=== PATIENT | male | born 1940 | race Caucasian/White ===

== ENCOUNTER → 2018-06-15 | Outpatient (CLI) | payer OTHER, MEDICARE ==
[~2018-06-15] MED LIST: ADULT LOW DOSE81 MG PO; ADVAIR HFA 45-218 GM; ASPIRIN EC81 M1 PO; ATORVASTATIN CA10 MG PO; B12INJ PO; CALCIUM 500 +1 EAC5 PO; CARDURA4 MG PO; FLONASE 0.05%50 MCG NASAL; LEVAQUIN 500 M500 M2 PO; LIPITOR10 MG PO; MUCINEX600 MG PO; PREDNISONE 20 M20 M1 PO; VITAMIN E400 UNIT PO; ZESTRIL20 MG PO
== END ==
LOC: RAD 11:56
DX: R06.00 Dyspnea, unspecified (principal); M25.78 Osteophyte, vertebrae; Z88.0 Allergy status to penicillin; Z88.8 Allergy status to other drugs, medicaments and biological substances

== ENCOUNTER 2020-03-23 14:19 | Emergency (ER) | payer OTHER, MEDICARE ==
[~2020-03-23] VITALS: Ht 180.3 cm; Wt 99.8 kg
[2020-03-23] MEDS ORDERED: CIPRO250 M2 PO (15:35)
[2020-03-23 15:37] VITALS: BP 108/41
[2020-03-23 15:51] LABS: URINE BILIRUBIN NEGATIVE (Negative); URINE BLOOD NEGATIVE (Negative); URINE CLARITY CLEAR; URINE COLOR YELLOW; URINE GLUCOSE-RANDOM* NEGATIVE (Negative); URINE KETONES NEGATIVE (Negative); URINE LEUKOCYTES-REFLEX NEGATIVE (Negative); URINE NITRITE-REFLEX NEGATIVE (Negative); URINE PROTEIN (DIPSTICK) NEGATIVE (Negative); URINE SPECIFIC GRAVITY >= 1.030 (1.005-1.035); URINE UROBILINOGEN 0.2 E.U./dl (0.2-1.0)
== END 2020-03-23 16:50 | disposition home or self-care (01) ==
LOC: ER 14:19
PROVIDERS: Emergency Medicine
DX: R33.9 Retention of urine, unspecified (principal); R30.0 Dysuria; I10 Essential (primary) hypertension; Z98.890 Other specified postprocedural states; Z79.899 Other long term (current) drug therapy; Z79.82 Long term (current) use of aspirin; Z88.8 Allergy status to other drugs, medicaments and biological substances; Z88.0 Allergy status to penicillin; Z87.891 Personal history of nicotine dependence

== ENCOUNTER 2020-03-27 09:36 | Emergency (ER) | payer OTHER, MEDICARE ==
[~2020-03-27] VITALS: Ht 180.3 cm; Wt 102.5 kg
[~2020-03-27 09:36] MED LIST changes: +CIPRO250 M2 PO
[2020-03-27 10:24] LABS: URINE BLOOD 3+ (Negative); URINE CLARITY SL CLOUDY; URINE COLOR BROWN; URINE GLUCOSE-RANDOM* NEGATIVE (Negative); URINE KETONES TRACE (Negative); URINE LEUKOCYTES-REFLEX TRACE (Negative); URINE NITRITE-REFLEX NEGATIVE (Negative); URINE PROTEIN (DIPSTICK) 2+ (Negative); URINE SPECIFIC GRAVITY >= 1.030 (1.005-1.035); URINE UROBILINOGEN 0.2 E.U./dl (0.2-1.0)
[2020-03-27 10:31] LABS: ICTOTEST (BILI CONFIRMATORY) Negative (Negative); URINE BILIRUBIN NEGATIVE (Negative)
[2020-03-27 10:44] LABS: CRYSTALS None Seen /LPF (None Seen); HYALINE CASTS 0-3 Few /LPF (None Seen); MUCUS 0-3 Light strn/LPF (None Seen); SQUAMOUS 0-3 Few /LPF (0-3); URINE RBC >20 Many /HPF (0-2); URINE WBC-REFLEX 0-5 Rare /HPF (0-5)
[2020-03-27 10:45] LABS: BACTERIA-REFLEX 1-9 Few /HPF (None Seen)
[2020-03-27] MEDS ORDERED: CLOTRIMAZOLE-BE15 GM TOP (11:55)
[2020-03-27] MEDS ORDERED: NYSTATIN15 G2 TOP (11:55)
[2020-03-27] MEDS ORDERED: PYRIDIUM100 M1 PO (11:55)
[2020-03-27 11:59] VITALS: BP 122/64
== END 2020-03-27 12:10 | disposition home or self-care (01) ==
LOC: ER 09:36
PROVIDERS: Emergency Medicine
DX: T83.511A Infection and inflammatory reaction due to indwelling urethral catheter, initial encounter (principal); B37.42 Candidal balanitis; I10 Essential (primary) hypertension; Z98.890 Other specified postprocedural states; Z79.899 Other long term (current) drug therapy; Z79.82 Long term (current) use of aspirin; Z88.8 Allergy status to other drugs, medicaments and biological substances; Z88.0 Allergy status to penicillin; Z87.891 Personal history of nicotine dependence; Y84.8 Other medical procedures as the cause of abnormal reaction of the patient, or of later complication, without mention of misadventure at the time of the procedure; Y92.89 Other specified places as the place of occurrence of the external cause